=== PATIENT | male | born 1980 | race Caucasian/White ===

== ENCOUNTER → 2020-06-25 10:30 | Outpatient (CLI) | payer BC, SELFPAY ==
[2016-07-18 00:19] VITALS: BMI 31.8
--- NOTE | 2020-06-25 11:21 | RAD_ITS ---
STUDY: X-RAY - LUMBOSACRAL SPINE REASON FOR EXAM: Male, 39 years old. Low back pain TECHNIQUE: 6 view(s) of the lumbosacral spine were obtained. COMPARISON: None FINDINGS: Normal lumbar lordosis. There is a mild dextroscoliosis of the lumbar spine. There is normal alignment of the vertebrae. Normal vertebral bodies and endplates. Normal disc space heights. Normal bilateral sacral ala, sacroiliac joints, and visualized sacrum. Normal visualized soft tissue structures. No instability on the flexion or extension views RAD/L/S Spine w Bend Min 6 Vw IMPRESSION: Normal x-ray examination of the lumbosacral spine. Electronically Signed: Сергей Stoddard MD at 11:42 EDT , Service support ,
[2020-06-25 12:10] LABS: Absolute Lymphocyte Count 1.98 X10^3/uL (0.83-4.51); Absolute Neutrophil Count 3.4 X10^3/uL (2.0-7.7); Basophil# 0.04 X10^3/uL; Basophil% 0.6 % (0-1); Eosinophil# 0.32 X10^3/uL; Eosinophils% 5.1 % (0-5); Hematocrit 44.6 % (40-54); Hemoglobin 15.2 g/dL (13.0-16.5); Lymphocyte # 1.98 X10^3/ul (0.83-4.51); Lymphocyte % 31.7 % (19-41); Mean Corp Hgb Conc 34.1 g/dL (32-36); Mean Corpuscular Hgb 29.9 pg (27.0-32.0); Mean Corpuscular Volume 87.8 fL (80-94); Mean Platelet Vol. 11.3 fl (6.2-12.0); Monocyte# 0.44 X10^3/uL; NRBC Flagged by Analyzer 0 % (0-5); Neutrophil # 3.44 X10^3/uL (2.7-7.7); Neutrophil % 55.1 % (47-70); Platelet Count 206 K/mm3 (150-450); RBC Distribution Width CV 12.5 % (11.6-14.6); RBC Distribution Width SD 40.2 fl (35.1-43.9); Red Blood Count 5.08 M/mm3 (4.6-6.2); White Blood Count 6.3 K/mm3 (4.4-11.0)
[2020-06-25 12:39] LABS: ALB/GLOB Ratio 1.1 RATIO (0.9-2.4); AST(SGOT) 11 U/L (15-37); Alanine Aminotransfer ALT/SGPT 25 U/L (16-61); Alkaline Phosphatase 90 U/L (45-117); Anion Gap 5 (5-15); BUN 13 mg/dL (7-18); BUN/Creat Ratio 10.6 RATIO (10-20); Calcium,Total 9.2 mg/dL (8.5-10.1); Chloride 105 mmol/L (98-107); Cholesterol 205 mg/dL (200); Creatinine, Serum 1.23 mg/dL (0.70-1.30); EST Glomerular Filtration Rate 70 mL/min (>60); Est Glom Filt Rate - Afr Amer 84 mL/min (>60); Globulin 3.8 g/dL (2.2-4.2); Glucose 98 mg/dL (74-106); High Density Lipoprotein 43 mg/dL; Potassium 4.1 mmol/L (3.5-5.1); Protein, Total 7.8 g/dL (6.4-8.2); Sodium Level 137 mmol/L (136-145); Thyroid Stim Hormone (TSH) 3.04 uIU/mL (0.358-3.74)
[2020-06-29 14:09] LABS: Testosterone, Free 7.41 ng/dL (5.00-21.00)
[2020-06-30 13:39] LABS: Testosterone, % Free 3.92 % (1.50-4.20); Testosterone, Total 189 ng/dL (264-916)
== END ==
PROVIDERS: PCP Family Medicine; Referring Provider Family Medicine; Visit Provider Family Medicine
DX: R10.9 Unspecified abdominal pain (principal); R68.82 Decreased libido; M54.5 Low back pain; Z13.220 Encounter for screening for lipoid disorders
CPT/HCPCS: 36415; 72114; 80053; 82465; 83718; 84402; 84403; 84443; 85025

== ENCOUNTER → 2020-07-02 12:32 | Outpatient (CLI) | payer BC, SELFPAY ==
--- NOTE | 2020-07-02 12:38 | US_ITS ---
STUDY: RENAL ULTRASOUND - COMPLETE REASON FOR EXAM: Male, 39 years old. UNSPECIFIED ABD PAIN TECHNIQUE: Ultrasound evaluation of the kidneys was performed with real-time and static vernon-scale imaging. COMPARISON: None. FINDINGS: RIGHT KIDNEY: Normal location of the right kidney, which is normal in size. The right kidney measures 12.5 cm. There is a normal cortex of the right kidney. The renal cortex measures 1.4 cm. There is no right renal mass or cyst. There are no right renal calculi. There is no right hydronephrosis. DISTAL RIGHT URETER: There is non-visualization of the distal right ureter. There is no demonstrated right ureterovesical junction calculus. There is a visualized right ureteral jet. LEFT KIDNEY: Normal location of the left kidney, which is normal in size. The left kidney measures 10.8 cm. There is a normal cortex of the left kidney. The renal cortex measures 1.7 cm. There is no left renal mass or cyst. There are no left renal calculi. There is no left hydronephrosis. DISTAL LEFT URETER: There is non-visualization of the distal left ureter. There is no demonstrated left ureterovesical junction calculus. There is a visualized left ureteral jet. BLADDER: The distended urinary bladder has a volume of 450 ml. The empty urinary bladder has a volume of ml. There is a normal wall thickness of the distended urinary bladder. There is no demonstrated mass within the urinary bladder. There are no demonstrated bladder calculi. US/Kidney and Bladder IMPRESSION: Normal ultrasound of the kidneys and urinary bladder. Electronically Signed: Cl Ray MD at 13:29 EDT Tel , Service support ,
== END ==
PROVIDERS: PCP Family Medicine; Referring Provider Family Medicine; Visit Provider Family Medicine
DX: R10.9 Unspecified abdominal pain (principal); G89.29 Other chronic pain
CPT/HCPCS: 76770

== ENCOUNTER → 2020-08-13 15:01 | Outpatient (CLI) | payer BC, SELFPAY ==
[2016-07-18 00:19] VITALS: BMI 31.8
[2020-08-18 08:09] LABS: Testosterone, Free 5.91 ng/dL (5.00-21.00)
[2020-08-18 15:08] LABS: Testosterone, % Free 2.84 % (1.50-4.20); Testosterone, Total 208 ng/dL (264-916)
== END ==
PROVIDERS: PCP Family Medicine; Visit Provider Family Medicine
DX: R20.2 Paresthesia of skin (principal); R68.82 Decreased libido
CPT/HCPCS: 36415; 83735; 84402; 84403

== ENCOUNTER → 2021-12-20 | Outpatient (CLI) | payer BC, SELFPAY ==
--- NOTE | 2021-12-20 09:48 | RAD_ITS ---
STUDY: X-RAY - ESOPHAGUS (BARIUM SWALLOW) WITH FLUOROSCOPY REASON FOR EXAM: Male, 41 years old. DYSPHAGIA TECHNIQUE: 13 view(s) of the esophagus were obtained following swallowing of barium. FLUOROSCOPY TIME (if supplied): (35 seconds) minutes/seconds COMPARISON: Comparison is made with prior examination dated 12/14/2016. FINDINGS: There is no demonstrated esophageal foreign body. There is no demonstrated stricture or mucosal abnormality. Normal gastroesophageal junction, without a demonstrated hiatal hernia. The patient ingested a 12 mm tablet of barium without any difficulty. Normal visualized aortic arch and descending thoracic aorta. Normal visualized pulmonary parenchyma. Normal visualized osseous structures of the thorax. RAD/Esophagus Dual Contrast IMPRESSION: Normal plain film x-ray examination (barium swallow) of the esophagus. Electronically Signed: Riley Mooney MD at 10:14 [facility] ,
== END | disposition home or self-care (01) ==
LOC: RAD 09:47
PROVIDERS: PCP Family Medicine; Referring Provider Internal Medicine Gastroenterology; Visit Provider Internal Medicine Gastroenterology
DX: R13.10 Dysphagia, unspecified (principal)
CPT/HCPCS: 74221

== ENCOUNTER → 2022-09-08 | Outpatient (CLI) | payer BC, SELFPAY ==
[2022-09-08 12:03] LABS: Absolute Lymphocyte Count 2.05 X10^3/uL (0.83-4.51); Absolute Neutrophil Count 3.5 X10^3/uL (2.0-7.7); Basophil# 0.03 X10^3/uL; Basophil% 0.5 % (0-1); Eosinophil# 0.29 X10^3/uL; Eosinophils% 4.5 % (0-5); Hematocrit 43.3 % (40-54); Hemoglobin 15.1 g/dL (13.0-16.5); Lymphocyte # 2.05 X10^3/ul (0.83-4.51); Lymphocyte % 31.9 % (19-41); Mean Corp Hgb Conc 34.9 g/dL (32-36); Mean Corpuscular Hgb 30.4 pg (27.0-32.0); Mean Corpuscular Volume 87.3 fL (80-94); Mean Platelet Vol. 11.2 fl (6.2-12.0); Monocyte# 0.55 X10^3/uL; Monocyte% 8.6 % (0-10); NRBC Flagged by Analyzer 0 % (0-5); Neutrophil # 3.47 X10^3/uL (2.7-7.7); Neutrophil % 53.9 % (47-70); Platelet Count 186 K/mm3 (150-450); RBC Distribution Width CV 12.6 % (11.6-14.6); RBC Distribution Width SD 39.8 fl (35.1-43.9); Red Blood Count 4.96 M/mm3 (4.6-6.2); White Blood Count 6.4 K/mm3 (4.4-11.0)
[2022-09-08 12:16] LABS: AST(SGOT) 37 U/L (15-37); Alanine Aminotransfer ALT/SGPT 48 U/L (16-61); Albumin, Serum 3.7 g/dL (3.2-5.0); Alkaline Phosphatase 94 U/L (45-117); Anion Gap 4 (5-15); BUN 14 mg/dL (7-18); BUN/Creat Ratio 10.5 RATIO (10-20); CPK Total, Creatine Kinase 657 U/L (39-308); Calcium,Total 9.3 mg/dL (8.5-10.1); Chloride 106 mmol/L (98-107); Creatinine, Serum 1.33 mg/dL (0.70-1.30); EST Glomerular Filtration Rate 63 mL/min (>60); Est Glom Filt Rate - Afr Amer 76 mL/min (>60); Globulin 3.8 g/dL (2.2-4.2); Glucose 106 mg/dL (74-106); Potassium 4.4 mmol/L (3.5-5.1); Protein, Total 7.5 g/dL (6.4-8.2); Sodium Level 139 mmol/L (136-145)
== END | disposition home or self-care (01) ==
LOC: MFPLAB 10:08
PROVIDERS: PCP Family Medicine; Visit Provider Family Medicine
DX: I10 Essential (primary) hypertension (principal); R01.1 Cardiac murmur, unspecified
CPT/HCPCS: 36415; 80053; 82550; 85025

== ENCOUNTER 2023-01-15 12:18 | Day surgery (SDC) | payer BC, SELFPAY ==
[2023-01-15] VITALS (8 sets, daily range): BP systolic 87–142; BP diastolic 58–81; PULSE 52–64; RESP 12–18; TEMP 36.4–37.2; O2SAT 90–99; BMI 33.4
--- NOTE | 2023-01-15 | COLBX_PTH ---
PATIENT: OMAR STERLING LOC: EN U#:[id number] AGE/SX: 42/M ROOM: RE01/15/[address]: Dr. Darrell Linda MD : 1980 BED: DIS: 01/15/2023 SPEC #: [id number] RECD: 01/15/23 15:25 STATUS: CYNDEE JENI #: [id number] KOBI: 01/15/23 00:[address]: Darrell Linda DEPT: SURGICAL PATHOLOGY RECD BY: Kevin Caldwell ENTERED: 01/16/23 09:10 SP TYPE: COLON BX OTHR DR: Dr. Shan Barr MD Tissues: Rectum, NOS Procedures: Surgery Specimen Level IV HEADER OPERATION: Colonoscopy with biopsy and banding PRE-OP DIAGNOSIS: Acute hemorrhoid, pruritus ani TISSUE SUBMITTED: Rectal mucosa biopsy MICROSCOPIC DIAGNOSIS Rectal mucosa, biopsy: Fragments of colonic mucosa, no pathologic diagnosis. VENICE:amina 01/17/2023 MICROSCOPIC DESCRIPTION Slides are reviewed. GROSS DESCRIPTION Received in fixative is one container labeled with the patient's name and designated rectal mucosa biopsy. The specimen consists of two irregular fragments of light beyer soft tissue that in aggregate measure 0.4 x 0.4 x 0.1 cm. The specimen is totally submitted in one cassette. / SJ:rg 01/16/2023 TC:4 CPT: 31883
[2023-01-15] MEDS: Lactated Ringers 1,000 ML 15 ML IV (12:40)
--- NOTE | 2023-01-15 13:04 | HP.PCM_ITS ---
History and Physical Date of Admission: 01/15/23 Date of Service: 12/22/22 MR#: [id number] Acct: [id number] Name: OMAR STERLING Rep #: [id number] : 1980 Provider: Dr. Darrell Linda MD Age/Sex: 42/M Location: [facility] Status: Signed Intake Vital Signs 10/20/2312:01 Height 6 ft 1 in Weight: 263 lb 4 oz BMI 34.7 BP 139/80 H Blood Pressure Location Rt brachial Position Sitting Respiration 17 Pulse 76 Pulse Source Monitor Temp 97.7 F L Temp Source Temporal Pulse Oximetry (%) 98 Oxygen Delivery Method room air Intake Visit Reasons: 2 WK FU, 10/20 RECTAL FISSURE Chief Complaint: f/u rectal fissure Is patient in pain?: No Allergies No Known Allergies Allergy (Verified 12/22/22 15:29) Medications dupilumab 300 mg/2 mL subcutaneous pen injector ([employer]) 300 mg subcut Q2W 09/14/22 [History Confirmed 12/22/22] lansoprazole 15 mg capsule,delayed release 15 mg PO DAILY 09/14/22 [History Confirmed 12/22/22] omega 8-lnd-qhk-fish oil 60 mg-90 mg-500 mg capsule (Fish Oil) 1 cap PO DAILY 10/20/22 [History Confirmed 12/22/22] tumeric 100 mg-elodia 150 mg-olive 50 mg-oreg 150 mg-caprylate capsule cap PO 10/20/22 [History Confirmed 12/22/22] PFSH Medical History Exertional compartment syndrome Pain in left tibia Pain of right tibia Surgical History Hx of hernia repair Social History Smoking Status: Never smoker HPI HPI HPI: Patient is a 42-year male who presents for follow-up of hemorrhoids. His initial consultation was October 20, 2022. His last visit was 12/08/2022. He reports today that overall he is fairly unchanged with his symptoms. He notes that there were 2 days with no bleeding but then he has experienced some bleeding both yesterday and today. He also notes that his itching symptoms are very episodic and he is only itching a little bit now but sometimes the itching becomes so to intense it interferes with sleep. He notes that it is particularly problematic following bowel movements. He confirms that he is doing sitz bath's with Epsom salts and only missed 3 nights but has been only able to do this 1 time per day rather than the prescribed 2 times. He confirms that he is still on Metamucil and is applying Desitin twice daily. Lastly he notes that he is using Preparation H but far less frequently than the Desitin. He denies noting any bulging but has experienced pain with several bowel movements. Concerning bowel movement specifically he states that he is having 1-2 soft bowel movements a day without significant straining and he has been continuing to consciously limit his toilet time. Below is recapitulated from patient's initial consultation visit for ease of review: He states today that he is overall doing better and has noticed a difference in use of supplemental fiber. He continues to deny any experience of tissue protrusion. His main complaint is for some itching after bowel movements. He describes this seems to be most prevalent at night. He confirms that he is occasionally using Tucks pads. He is also making infrequent use of Desitin approximately 4 times per week. He reports that his bowel movements are occurring regularly in the morning and he has been diligent about drinking more water in addition to his fiber supplementation. Even with the softer bowel movements, he reports that he is still seen some blood with bowel movements almost every day. He denies any use of sitz bath's. He is referred from Dr. Barr. They first noted this issue a couple of months ago. He reports that when he was of elementary age he found blood in his un derwear and was told by a doctor that he had hemorrhoids. With this issue remitted spontaneously and was never revisited. Regarding his current complaints, he relates that itching is his primary issue. He states that it itches within his anus so significantly that he must try to relieve the itch himself. He denies any awareness of any bulging or protruding tissue. He confirms that he has noticed some spotting of bright red blood on the toilet tissue. He generally denies any pain except for when he attempts to relieve the itching himself. He specifically denies any experience of knifeli ke pain. To date he has tried hydrocortisone suppositories with some relief, but states that itching returns as soon as he discontinues the suppositories. When discussing his bowel movements, he admits that he is having some hard stools and the stools seem to be hard when he initially sits down to defecate but then it becomes softer later on in the same setting. He describes a frequency of 1-2 bowel movements a day and has overall noted less loose stools and when he was eating out all the time (he states that he has changed his diet significantly). He reports a total time of just a few minutes. He does admit to some straining. In the past he has used fiber bars, but states that they are now out of these bars at home. He does report drinking quite a bit of water (he quantifies this as 6-7 bottles of water at work day). When asked about his toilet hygiene he reports that he does not think of himself as a hyper wiper) but does try to ensure that he is clean. He also clarifies that he does not use any regular wet wipes. He has not use any sitz bath's for this present issue. There is no personal history of inflammatory bowel disease, colon polyps, or other GI issue. There is a family history of rectal cancer in his first cousin. He believes this relative was diagnosed in her 30s and he, himself, underwent upper and lower endoscopy shortly after diagnosis given the likely genetic risk. He states that he was diagnosed with eosinophilic esophagitis with the upper scope, but this has been under good control. He denies any significant findings with the lower scope. He estimates that this procedure was undertaken him 5 to [address] Castro. ROS General General: No weight change, appetite, fatigue, colon cancer, breast cancer or weakness HEENT HEENT: No difficulty swallowing, eye injury, eye surgery, swollen glands or hoarseness Endo Endocrine: No thyroid disease, diabetes mellitus, thyroid cancer, Hair loss, heat intolerance or cold intolerance Skin Skin: No rash or changing moles Musc Musculoskeletal: No back problems, arthritis, rheumatoid arthritis, gout or joint pain Cardio Cardiovascular: No murmur, pacemaker, heart disease, atrial fibrillation, high blood pressure, heart attack, heart stent, palpitations, shortness of breat with exertion or chest pain Psych Psychiatric: No depression, anxiety or hearing voices Resp Respiratory: No shortness of breath, No sleep apnea, No cough, No COPD, No asthma, No emphysema and No wheezing Gastro Gastrointestinal: No abdominal pain, No nausea or vomiting, No diarrhea, No constipation, Yes blood in stool, Yes acid reflux, Yes hemorrhoids, No ulcers, No gallbladder problem and No black,tarry stools Hay Hematologic: No blood thinners, No blood disorders, No bleeding, No anemia and No blood clots Neuro Neurologic: No weakness Exam Const General: cooperative and anxious Orientation: alert, awake and oriented x3 Assessment and Plan Assessment and Plan (1) Acute hemorrhoid: Status: Acute Comment: This is a 42-year-old male who presents with complaints of anal itching and some bright red blood per rectum now. Today he states that his symptoms are largely unchanged despite trying to add in the sitz bath's and doing more regular application of zinc oxide ointment. It is clear that he has not been able to do the sitz bath's twice daily and I have counseled him that he should try to immediately remove any fecal matter after bowel movements from the anal opening. I suggested he may use wipes that are previously rinsed in the sink and then immediately pat the area dry. Given the lack of further improvement, however, I have recommended that we proceed with our previous plan of proceeding to the endoscopy suite for colonoscopy with further evaluation and possible hemorrhoid banding. Mr. Sterling states that he is reluctant to admit it but he agrees with this plan of action and has been provided instructions for a bowel prep. Plan: ? Continue sitz baths (ideally twice daily) with Epsom salts ? Application of zinc oxide ointment at least once nightly to endoderm ? Patient encouraged to discontinue Preparation H given the length of time he has been using this I do not want to see it causing thinning of the anoderm. ? Patient encouraged to try to clean his anus after bowel movements using simple water?soaked wipes and then dry thoroughly ? Colonoscopy with possible endoscopic banding at first mutually agreeable date. 2-day bowel prep with patient instructed that he will require a city driver the day of the procedure (2) Pruritus ani: Status: Acute Comment: As above, patient has rather clear-cut diagnosis of pruritus ani on top of probable hemorrhoids. I have counseled him and the need to keep the area clean and dry as much as possible and encouraged him to continue use of zinc oxide ointment Plan: ? Cleansing and ointment application as discussed above Interval H&P: Patient reports that he has had some improvements in his bleeding, but has persistent itching. He shares that he believes is Preparation H serves to reduce these latter symptoms better than the zinc oxide ointment. He also confirms that he has not had anything solid to eat for 3 days and that his prep proceeded successfully such that his output is now clear and simply reflective of the Gatorade that he has been using to complete it. Expectations?including possible hemorrhoid banding?were reviewed and all questions were answered from him and his spouse. Proceed to endoscopy room for colonoscopy as discussed above.
--- NOTE | 2023-01-15 14:00 | OP.COLON_ITS ---
Patient Name: Perico Hernandez Procedure Date: 01/15/2023 1:08 PM Date of : 1980 Age: 42 Procedure: Colonoscopy Indications: Rectal bleeding Providers: Darrell Linda MD Medicines: See the Anesthesia note for documentation of the administered medications Patient Profile: Refer to note in patient chart for documentation of history and physical. Last Colonoscopy: several years ago. Complications: No immediate complications. Estimated blood loss: Minimal. Procedure: Pre-Anesthesia Assessment: - The heart rate, respiratory rate, oxygen saturations, blood pressure, adequacy of pulmonary ventilation, and response to care were monitored throughout the procedure. After I obtained informed consent, the scope was passed under direct vision. Throughout the procedure, the patient's blood pressure, pulse, and oxygen saturations were monitored continuously. The Colonoscope was introduced through the anus and advanced to the cecum, identified by the appendiceal orifice, ileocecal valve and palpation. The colonoscopy was performed without difficulty. The patient tolerated the procedure well. The quality of the bowel preparation was excellent. Scope In: 1:22:31 PM Scope Withdrawal Time 0 hours 21 minutes 20 seconds Scope Out: 1:48:56 PM Total Procedure Duration Time 0 hours 26 minutes 25 seconds Findings: The perianal and digital rectal examinations were normal. Pertinent negatives include no anal lesion or abnormality. Internal hemorrhoids were found during retroflexion. The hemorrhoids were mild, small and Grade I (internal hemorrhoids that do not prolapse). One band was successfully placed. There was no bleeding at the end of the procedure. Estimated blood loss was minimal. Normal mucosa was found in the entire colon. Biopsies were taken with a cold forceps for histology. Estimated blood loss was minimal. Impression: - Internal hemorrhoids. Banded. - Normal mucosa in the entire examined colon. Biopsied. Recommendation: - Discharge patient to home (via wheelchair). - Resume previous diet today. - Continue present medications. - Await pathology results. - Telephone my office for pathology results in 1 week. - Repeat colonoscopy in 5-10 years for surveillance based on pathology results. Procedure Code(s): --- Professional --- 17934, Colonoscopy, flexible; with band ligation(s) (eg, hemorrhoids) 65736, Colonoscopy, flexible; with biopsy, single or multiple Diagnosis Code(s): --- Professional --- K64.0, First degree hemorrhoids K62.5, Hemorrhage of anus and rectum CPT copyright 2021 [employer]. All rights reserved. The codes documented in this report are preliminary and upon lining cleaner review may be revised to meet current compliance requirements. Darrell Linda MD 01/15/2023 1:59:39 PM This report has been signed electronically. Number of Addenda: 0 Note Initiated On: 01/15/2023 1:08 PM
--- NOTE | 2023-01-15 14:00 | OP.CCLET_ITS ---
01/15/2023 Shan Barr [address] [place] [address] Re : Colonoscopy procedure for Perico Hernandez Dear Dr. Barr This procedure was performed on Sunday, January 15, 2023. My impressions and recommendations are as follows: Impressions : - Internal hemorrhoids. Banded. - Normal mucosa in the entire examined colon. Biopsied. Recommendations : - Discharge patient to home (via wheelchair). - Resume previous diet today. - Continue present medications. - Await pathology results. - Telephone my office for pathology results in 1 week. - Repeat colonoscopy in 5-10 years for surveillance based on pathology results. My findings are described in the full procedure note, which is enclosed. If I can be of further assistance, please feel free to contact me at Doctor phone number(s): , Work: . Sincerely, Darrell Linda MD 01/15/2023 1:59:39 PM This report has been signed electronically.
== END 2023-01-15 14:52 | disposition home or self-care (01) ==
LOC: EN 12:18 → AC 12:19
PROVIDERS: PCP Family Medicine; Referring Provider Surgery; Visit Provider Surgery
PROC: 0DJD8ZZ Inspection of Lower Intestinal Tract, Via Natural or Artificial Opening Endoscopic (ICD-10-PCS; CPT 45378; principal; 2023-01-15 13:25)
DX: K64.0 First degree hemorrhoids (principal); K62.5 Hemorrhage of anus and rectum; Z80.0 Family history of malignant neoplasm of digestive organs
CPT/HCPCS: 45380; 45398; 88305; J7120; J2405

== ENCOUNTER → 2024-03-11 | Outpatient (CLI) | payer BC, SELFPAY ==
--- NOTE | 2024-03-11 16:26 | CT_ITS ---
PROCEDURE: ABDOMEN/PELVIS WITHOUT CONTRAST REASON FOR EXAM: Right lower quadrant and groin pain for 4 days radiating to flank. TECHNIQUE: Contiguous axial scans of 2.5 mm slice thicknesses. Sagittal and coronal reconstruction images were obtained. One or more dose reduction techniques were used (e.g., automated exposure control, adjustment of mA and/or kv according to patient size, use of iterative reconstruction technique). IV CONTRAST: Not given. COMPARISON: None.. FINDINGS: Lung bases: Clear Liver: Unremarkable. Gallbladder: Unremarkable. Spleen: Unremarkable. Pancreas: Unremarkable. Adrenals: Unremarkable. Kidneys: Unremarkable. Bladder: Unremarkable. Reproductive Organs: Unremarkable. Bowel: Mild diverticulosis of the sigmoid colon. Appendix: Normal. Lymph nodes: No suspicious lymph node enlargement. Vasculature: Major vascular structures are unremarkable. Peritoneum / Retroperitoneum: No ascites. No free air. Bones: Unremarkable. CT/Abdomen/Pelvis without Cont IMPRESSION: 1. Mild diverticulosis, sigmoid colon. Reading Location: [facility]
[2024-03-11 17:00] LABS: Absolute Lymphocyte Count 1.97 X10^3/uL (0.83-4.51); Absolute Neutrophil Count 3.5 X10^3/uL (2.0-7.7); Basophil# 0.05 X10^3/uL; Basophil% 0.8 % (0-1); Eosinophil# 0.41 X10^3/uL; Eosinophils% 6.3 % (0-5); Hematocrit 43.3 % (40-54); Hemoglobin 15.2 g/dL (13.0-16.5); Lymphocyte # 1.97 X10^3/ul (0.83-4.51); Mean Corp Hgb Conc 35.1 g/dL (32-36); Mean Corpuscular Hgb 30.2 pg (27.0-32.0); Mean Corpuscular Volume 86.1 fL (80-94); Mean Platelet Vol. 10.9 fl (6.2-12.0); Monocyte# 0.59 X10^3/uL; NRBC Flagged by Analyzer 0 % (0-5); Neutrophil # 3.51 X10^3/uL (2.7-7.7); Neutrophil % 53.4 % (47-70); Platelet Count 192 K/mm3 (150-450); RBC Distribution Width CV 12.3 % (11.6-14.6); RBC Distribution Width SD 38.4 fl (35.1-43.9); Red Blood Count 5.03 M/mm3 (4.6-6.2); White Blood Count 6.6 K/mm3 (4.4-11.0)
[2024-03-11 17:24] LABS: ALB/GLOB Ratio 1.1 RATIO (0.9-2.4); AST(SGOT) 16 U/L (15-37); Alanine Aminotransfer ALT/SGPT 26 U/L (16-61); Albumin, Serum 4.2 g/dL (3.2-5.0); Alkaline Phosphatase 72 U/L (45-117); Anion Gap 7 (5-15); BUN 14 mg/dL (7-18); BUN/Creat Ratio 11.1 RATIO (10-20); Calcium,Total 9.1 mg/dL (8.5-10.1); Chloride 107 mmol/L (98-107); Creatinine, Serum 1.26 mg/dL (0.70-1.30); EST Glomerular Filtration Rate 67 mL/min (>60); Est Glom Filt Rate - Afr Amer 81 mL/min (>60); Globulin 3.7 g/dL (2.2-4.2); Glucose 103 mg/dL (74-106); Potassium 4.2 mmol/L (3.5-5.1); Protein, Total 7.9 g/dL (6.4-8.2); Sodium Level 140 mmol/L (136-145)
== END | disposition home or self-care (01) ==
LOC: CT 16:21
PROVIDERS: PCP Family Medicine; Referring Provider Nurse Practitioner Family; Visit Provider Nurse Practitioner Family
DX: R10.9 Unspecified abdominal pain (principal)
CPT/HCPCS: 36415; 74176; 80053; 85025